=== PATIENT | female | born 1965 | race Caucasian/White ===

== ENCOUNTER 2018-02-24 15:14 | Outpatient (CLI) | payer OTHER | END 2018-02-24 15:15 | disposition home or self-care (01) | LOC: BICMAMMO 15:14 | PROVIDERS: ATTEND Family Medicine | DX: Z12.31 Encounter for screening mammogram for malignant neoplasm of breast (principal) | CPT/HCPCS: 77063; 77067 ==

== ENCOUNTER 2018-10-07 15:04 | Outpatient (CLI) | payer OTHER ==
--- NOTE | 2018-10-07 17:03 | MRI ---
MRI OF THE LUMBAR SPINE WITHOUT CONTRAST: 10/07/18 HISTORY: Low back pain. COMPARISON: None. TECHNIQUE: MRI of the lumbar spine is performed without intravenous gadolinium administration. Multisequential, multiplanar imaging is performed. FINDINGS: There appears to be partial lumbarization of S1. There is appropriate T1 marrow signal intensity of the lumbar vertebrae. Lumbar spine vertebral body height is maintained. There is no fracture. No sign ificant STIR hyperintensity to suggest vertebral body edema or ligamentous injury. Appropriate signal intensity in the visualized solid organs. Symmetric signal intensity of the psoas muscles as well as the paraspinal muscles. Conus medullaris terminates at the mid L1 level. T12-L1: No significant central canal stenosis or foraminal narrowing. L1-2: No significant central canal stenosis or foraminal narrowing. L2-3: No significant central canal stenosis or foraminal narrowing. L3-4: No significant central canal stenosis or foraminal narrowing. L4-5: No significant central canal stenosis or foraminal narrowing. L5-S1: No significant central canal stenosis or foraminal narrowing. IMPRESSION: No significant central canal stenosis or foraminal narrowing. POS: [facility]
== END 2018-10-07 15:05 | disposition home or self-care (01) ==
LOC: BICMRI 15:04
PROVIDERS: ATTEND Family Medicine
DX: M54.5 Low back pain (principal); G89.29 Other chronic pain
CPT/HCPCS: 72148

== ENCOUNTER 2018-11-23 17:09 | Emergency (ER) | payer OTHER ==
[2018-11-23 19:01] LABS: #Basophils 0.1 thou/uL (0.0-0.2); #Eosinphils 0.2 thou/uL (0.0-0.7); #Monocytes 0.5 thou/uL (0.11-0.59); #Neutrophils 3.4 thou/uL (1.40-6.50); %Basophils 1.3 % (0.0-1.0); %Eosinophils 3.4 % (0.0-10.0); %Lymphocytes 41.9 % (21.0-51.0); %Neutrophils 46.5 % (42.0-75.0); Mean Corpuscular HGB CONC 33.4 g/dL (32.0-36.0); Mean Corpuscular Hemoglobin 30.9 pg (27.0-31.0); Mean Corpuscular Volume 92.4 fL (78.0-98.0); Mean Platelet Volume 9.8 fL (7.4-10.4); Platelet Count 234 thou/uL (130-400); RBC Distribution Width 12.6 % (11.5-14.5); Red Blood Cell (RBC) Count 4.54 mill/uL (4.20-5.40); White Blood Cell (WBC) Count 7.3 thou/uL (4.8-10.8)
[2018-11-23 19:20] LABS: ALT (SGPT) 38 U/L (8-55); AST (SGOT) 31 U/L (5-34); Albumin 4.3 g/dL (3.5-5.0); Alkaline Phosphatase 192 U/L (40-150); Anion Gap 11 mmol/L (10-20); BUN (Urea Nitrogen) 7 mg/dL (9.8-20.1); Bilirubin, Total 0.5 mg/dL (0.2-1.2); Calc. Creatinine Clearance 0 mL/min (70-130); Calcium 10.3 mg/dL (7.8-10.44); Carbon Dioxide 33 mmol/L (22-29); Chloride 98 mmol/L (98-107); Estimated GFR-MDRD 65; Globulin 2.8 g/dL (2.4-3.5); Glucose 94 mg/dL (70-105); Potassium 3.8 mmol/L (3.5-5.1); Protein, Total 7.1 g/dL (6.0-8.3); Sodium 138 mmol/L (136-145)
--- NOTE | 2018-11-23 20:19 | CT ---
CT BRAIN WITHOUT CONTRAST: HISTORY:Headache, nausea, vomiting, dizziness COMPARISON:None FINDINGS: No evidence of acute infarct, hemorrhage, midline shift or abnormal extra-axial fluid collections is seen. The ventricular size is appropriate and the basilar cisterns are patent. The bony calvarium is intact. The visualized paranasal sinuses and mastoid air cells are well aerated. IMPRESSION: No CT evidence of acute intracranial process.
[2018-11-23] MEDS ORDERED: Metoclopramide HCl 10 MG/2 ML VIAL ONE (21:11)
[2018-11-23] MEDS ORDERED: diphenhydrAMINE 50 MG/ML VIAL ONE (21:11)
[2018-11-23] MEDS ORDERED: Acetaminophen 500 MG TAB ONE (21:11)
[2018-11-23] MEDS ORDERED: Ondansetron PF 4 MG/2 ML Vial ONE (21:35)
[2018-11-23] MEDS ORDERED: Magnesium 2 GM/50 ML BAG (IN WATER) ONE (22:42)
[2018-11-23] MEDS ORDERED: methylPREDNISolone Sod Succ/PF 125 MG/2 ML VIAL ONE (22:42)
[2018-11-23 23:08] LABS: Amphetamine Not Detected (NotDetected); Barbiturates Screen Not Detected (NotDetected); Benzodiazepine Screen Not Detected (NotDetected); Cocaine Metabolite Screen Not Detected (NotDetected); Medtox Control Line Valid? VALID (VALID); Medtox Reader # READER 1; Methadone Not Detected (NotDetected); Methamphetamine Not Detected (NotDetected); Opiate Screen Not Detected (NotDetected); Oxycodone Screen Not Detected (NotDetected); Phencyclidine (PCP) Not Detected (NotDetected); THC/Cannabinoid Screen Detected (NotDetected); Tricyclic Screen Not Detected (NotDetected)
== END 2018-11-23 23:39 | disposition home or self-care (01) ==
LOC: ERS 17:09
DX: R51 Headache (principal); R11.2 Nausea with vomiting, unspecified; E03.9 Hypothyroidism, unspecified; E78.5 Hyperlipidemia, unspecified; I10 Essential (primary) hypertension; Z86.718 Personal history of other venous thrombosis and embolism; F41.9 Anxiety disorder, unspecified; F17.210 Nicotine dependence, cigarettes, uncomplicated; Z79.899 Other long term (current) drug therapy; Z79.01 Long term (current) use of anticoagulants
CPT/HCPCS: 36415; 70450; 80053; 80306; 83690; 84484; 85025; 93005; 96365; 96367; 96375; J1200; J2405; J2765; J2930; J3475

== ENCOUNTER 2018-12-01 13:10 | Outpatient (CLI) | payer OTHER ==
--- NOTE | 2018-12-01 14:16 | ULT ---
BILATERAL CAROTID DUPLEX ULTRASOUND: HISTORY: Right-sided carotid bruit TECHNIQUE: Grayscale, color-flow and spectral Doppler ultrasound imaging of the extracranial carotid artery syst ems was performed bilaterally. FINDINGS: There is plaque formation on either side. The peak systolic velocity in the right ICA measures 100 cm/s with an end-diastolic velocity of 37 cm /s and a systolic ratio of 1.07. The peak systolic velocity in the left ICA measures 87 cm/s with an end-diastolic velocity of 32 cm/s and a systolic ratio of 0.85. Flow in both vertebral arteries remains antegrade. IMPRESSION: No evidence of hemodynamically significant stenosis.
== END 2018-12-01 13:11 | disposition home or self-care (01) ==
LOC: ULT 13:10
PROVIDERS: ATTEND Family Medicine
DX: R09.89 Other specified symptoms and signs involving the circulatory and respiratory systems (principal)
CPT/HCPCS: 93880

== ENCOUNTER 2019-03-17 17:49 | Emergency (ER) | payer OTHER ==
[~2019-03-17 17:49] MED LIST: ISOVUE-370 76%-LOCM 1 ML ONE
[2019-03-17 18:31] LABS: #Basophils 0.1 thou/uL (0.0-0.2); #Eosinphils 0.2 thou/uL (0.0-0.7); #Lymphocytes 3.2 thou/uL (1.20-3.40); #Monocytes 0.8 thou/uL (0.11-0.59); #Neutrophils 7.8 thou/uL (1.40-6.50); %Basophils 0.8 % (0.0-1.0); %Eosinophils 1.5 % (0.0-10.0); %Lymphocytes 26.3 % (21.0-51.0); %Monocytes 6.8 % (0.0-10.0); %Neutrophils 64.6 % (42.0-75.0); Mean Corpuscular HGB CONC 34.5 g/dL (32.0-36.0); Mean Corpuscular Hemoglobin 31.6 pg (27.0-31.0); Mean Corpuscular Volume 91.7 fL (78.0-98.0); Mean Platelet Volume 9.7 fL (7.4-10.4); Platelet Count 216 thou/uL (130-400); RBC Distribution Width 12.8 % (11.5-14.5); Red Blood Cell (RBC) Count 4.75 mill/uL (4.20-5.40); White Blood Cell (WBC) Count 12.1 thou/uL (4.8-10.8)
[2019-03-17 18:38] LABS: INR-International Normal Ratio 0.9; Prothrombin Time 12.3 SEC (12.0-14.7)
[2019-03-17 18:40] LABS: D-Dimer Test 0.82 *mcg/mL (0.27-0.43)
[2019-03-17 18:47] LABS: ALT (SGPT) 20 U/L (8-55); AST (SGOT) 20 U/L (5-34); Albumin 4.7 g/dL (3.5-5.0); Alkaline Phosphatase 166 U/L (40-150); Anion Gap 15 mmol/L (10-20); BUN (Urea Nitrogen) 7 mg/dL (9.8-20.1); Bilirubin, Total 0.5 mg/dL (0.2-1.2); Calc. Creatinine Clearance 0 mL/min (70-130); Calcium 10.8 mg/dL (7.8-10.44); Carbon Dioxide 27 mmol/L (22-29); Chloride 101 mmol/L (98-107); Estimated GFR-MDRD 60; Globulin 3.6 g/dL (2.4-3.5); Glucose 133 mg/dL (70-105); Potassium 3.4 mmol/L (3.5-5.1); Protein, Total 8.3 g/dL (6.0-8.3); Sodium 140 mmol/L (136-145)
[2019-03-17 18:51] LABS: Troponin I Less than 0.010 ng/mL (< 0.028)
--- NOTE | 2019-03-17 18:53 | RAD ---
PORTABLE AP CHEST X-RAY: 03/17/19 HISTORY: Tachycardia. COMPARISON: 10/28/07. FINDINGS: The cardiac silhouette and pulmonary vasculature are within normal limits. The lungs remain clear. Th ere has been no interval change when compared to the prior exam. IMPRESSION: No acute cardiopulmonary process. POS: [facility]
--- NOTE | 2019-03-17 19:13 | CT ---
CT ANGIOGRAM THORAX WITH IV CONTRAST AND 3D RECONSTRUCTIONS: 03/17/19 HISTORY: Chest pain. COMPARISON: 10/29/07. FINDINGS: No filling defects are seen in the pulmonary arteries to suggest pulmonary embolus. Vascular calcifications are seen in the thoracic aorta with scattered atherosclerotic plaque also pre sent. The thoracic aorta is normal in caliber without evidence of an aortic dissection. There is an area of linear density within the right lower lobe likely related to subsegmental atelect asis. A few peripheral blebs are seen in the posterior right lower lobe with minimal dependent atelec tasis present bilaterally. No pulmonary nodule, mass or pleural effusion is identified. Upper abdomen demonstrates evidence of prior cholecystectomy. There is partial visualization of most superior aspect of an IVC filter. No other interval change from prior exam. IMPRESSION: 1. No CT evidence of a pulmonary embolus. 2. Atherosclerotic vascular calcifications and plaque in the thoracic aorta. The thoracic aorta is normal in caliber without evidence of an aortic dissection. POS: [facility]
[2019-03-17] MEDS ORDERED: Enoxaparin Sodium 60 MG/0.6 ML SYRINGE ONE (19:18)
[2019-03-17] MEDS ORDERED: Warfarin Sodium 3 MG TAB PO SCH (19:45)
== END 2019-03-17 20:45 | disposition home or self-care (01) ==
LOC: ERS 17:49
DX: R00.0 Tachycardia, unspecified (principal); M54.12 Radiculopathy, cervical region; M25.511 Pain in right shoulder; E03.9 Hypothyroidism, unspecified; E78.5 Hyperlipidemia, unspecified; I10 Essential (primary) hypertension; F41.9 Anxiety disorder, unspecified; F17.210 Nicotine dependence, cigarettes, uncomplicated; Z79.01 Long term (current) use of anticoagulants; Z86.718 Personal history of other venous thrombosis and embolism; Z79.899 Other long term (current) drug therapy
CPT/HCPCS: 71045; 71275; 80053; 84443; 84484; 85025; 85379; 85610; 93005; 96360; 96372; J1650; Q9966

== ENCOUNTER 2020-11-07 11:12 | Outpatient (CLI) | payer BC | END 2020-11-07 11:13 | disposition home or self-care (01) | LOC: BICMAMMO 11:12 | PROVIDERS: ATTEND Physician Assistant | DX: Z12.31 Encounter for screening mammogram for malignant neoplasm of breast (principal) | CPT/HCPCS: 77063; 77067 ==

== ENCOUNTER 2022-07-09 14:10 | Emergency (ER) | payer BC | END 2022-07-09 15:05 | disposition home or self-care (01) | LOC: ERS 14:10 | DX: J10.1 Influenza due to other identified influenza virus with other respiratory manifestations (principal); F17.210 Nicotine dependence, cigarettes, uncomplicated | CPT/HCPCS: 71045; 87804 ==